=== PATIENT | male | born 1955 | race African-American/Black ===

== ENCOUNTER 2019-07-19 13:33 | Emergency (ER) | payer SELFPAY ==
--- NOTE | 2019-07-19 15:11 | RAD ---
EXAM: XR Knee Lt 4 View STANDARD PROVIDED CLINICAL HISTORY: Pain FINDINGS: There is no evidence for fracture or other acute osseous abnormality. Alignment appears anatomic. Ost eophyte formation is seen about the knee with medial femorotibial joint space narrowing. There is moderate-severe knee joint capsular distention presumably reflecting effusion. IMPRESSION: No evidence for an acute osseous abnormality. If there is persistent clinical concern, conservative m anagement and follow-up imaging advised.
== END 2019-07-19 16:10 | disposition home or self-care (01) ==
LOC: ERS 13:33
DX: M25.562 Pain in left knee (principal); M10.9 Gout, unspecified; I10 Essential (primary) hypertension; F17.210 Nicotine dependence, cigarettes, uncomplicated; Z79.899 Other long term (current) drug therapy

== ENCOUNTER 2021-12-31 13:27 | Emergency (ER) | payer MEDICAID, MEDICARE ==
[2021-12-31] MEDS ORDERED: Ketorolac Tromethamine 30 MG/ML VIAL ONE (15:02)
[2021-12-31] MEDS ORDERED: Lidocaine 1% PF 5 ML VIAL ONE ×2 (17:36→19:59)
[2021-12-31] MEDS ORDERED: Lidocaine 1% w/Epinephrine 1:100K 20 ML VIAL ONE (17:38)
[2021-12-31 17:51] LABS: Hemoglobin 15.4 g/dL (14.0-18.0); Mean Corpuscular HGB CONC 31.7 g/dL (32.0-36.0); Mean Corpuscular Hemoglobin 28.7 pg (27.0-31.0); Mean Corpuscular Volume 90.7 fL (78.0-98.0); Platelet Count 174 thou/uL (130-400); RBC Distribution Width 12.8 % (11.5-14.5); Red Blood Cell (RBC) Count 5.38 mill/uL (4.70-6.10)
[2021-12-31 18:05] LABS: ALT (SGPT) 25 U/L (8-55); AST (SGOT) 26 U/L (5-34); Alkaline Phosphatase 95 U/L (40-110); Anion Gap 18 mmol/L (10-20); BUN (Urea Nitrogen) 14 mg/dL (8.4-25.7); Bilirubin, Total 0.9 mg/dL (0.2-1.2); Calc. Creatinine Clearance 0 mL/min (70-130); Calcium 8.9 mg/dL (7.8-10.44); Carbon Dioxide 20 mmol/L (23-31); Chloride 107 mmol/L (98-107); Globulin 3.1 g/dL (2.4-3.5); Glucose 89 mg/dL (80-115); Potassium 4.6 mmol/L (3.5-5.1); Protein, Total 7.1 g/dL (5.8-8.1); Sodium 140 mmol/L (136-145)
[2021-12-31 18:07] LABS: Eosinophils 3 % (0-10); Lymphocytes 34 % (21-51); MDiff Complete? YES; Monocytes 9 % (0-10); Neutrophil 46 % (42-75); Platelet Morphology Comment Appears Adequate; Polychromasia SLIGHT = 2-3 cells (100X) (0-2/hpf); Reactive Lymphocytes 6 % (0-10)
[2021-12-31 19:17] LABS: RBC Count-Automated (BF) 0 /cu.mm; WBC/Nucleated-Auto (BF) 2771 /cu.mm
[2021-12-31 19:19] LABS: Body Fluid Source Synovial Fluid; Tube # EDTA
[2021-12-31 19:20] LABS: BF Color Yellow; BF Segmented Neutrophils 54 %; Cell Count Non Hematic 44 %; Clarity Hazy (Clear); Lymphocytes 2 %
[2021-12-31] MEDS ORDERED: Bupivacaine 0.25% 10 ML VIAL ONE (19:59)
[2021-12-31] MEDS ORDERED: Colchicine 0.6 MG TAB ONE (20:48)
== END 2021-12-31 20:56 | disposition home or self-care (01) ==
LOC: ERS 13:27
DX: M25.462 Effusion, left knee (principal); M10.9 Gout, unspecified; I10 Essential (primary) hypertension; F17.210 Nicotine dependence, cigarettes, uncomplicated; Z79.899 Other long term (current) drug therapy
CPT/HCPCS: 36415; 80053; 82945; 85025; 85060; 85652; 86140; 87070; 87205; 89051; 89060; 96372; J1040; J1885; S0020

== ENCOUNTER 2022-01-18 01:41 | Inpatient (IN) | payer MEDICARE ==
[2022-01-18] MEDS ORDERED: Nitroglycerin 50 MG/250 ML BOT 250 ML ONE (01:50)
[2022-01-18] MEDS ORDERED: Labetalol HCl 100 MG/20 ML VIAL ONE (01:52)
[2022-01-18] MEDS ORDERED: Furosemide 100 MG/10 ML VIAL ONE (01:59)
[2022-01-18 02:08] LABS: Hemoglobin 16.2 g/dL (14.0-18.0); Mean Corpuscular HGB CONC 32.1 g/dL (32.0-36.0); Mean Corpuscular Hemoglobin 29.7 pg (27.0-31.0); Mean Corpuscular Volume 92.6 fL (78.0-98.0); RBC Distribution Width 12.9 % (11.5-14.5); Red Blood Cell (RBC) Count 5.46 mill/uL (4.70-6.10); White Blood Cell (WBC) Count 12.2 thou/uL (4.8-10.8)
[2022-01-18 02:21] LABS: #Basophils 0.1 thou/uL (0.0-0.2); #Eosinphils 0.1 thou/uL (0.0-0.7); #Lymphocytes 3.3 thou/uL (1.20-3.40); #Monocytes 1.3 thou/uL (0.11-0.59); #Neutrophils 7.5 thou/uL (1.40-6.50); %Basophils 0.6 % (0.0-1.0); %Eosinophils 0.4 % (0.0-10.0); %Lymphocytes 26.7 % (21.0-51.0); %Monocytes 10.6 % (0.0-10.0); %Neutrophils 61.6 % (42.0-75.0); Platelet Count 115 thou/uL (130-400); Platelet Morphology Comment Appears Decreased
[2022-01-18 02:27] LABS: Actual Bicarbonate (HCO3a) 23.2 mEq/L (22-28); Analyzer IN Cardio ER; Base Excess (BEa) -1.7 mEq/L (-2.0 to +3.0); CO2 Tension 40.2 mmHg (35.0-45.0); Calcium, Ionized (arterial) 1.12 mmol/L (1.12-1.30); Carboxyhemoglobin (COHb) 1.8 gm% (0.0-3.0); O2 Tension (PaO2), arterial 95.6 mmHg (> 80.0); Potassium - ABG Lab 3.43 mmol/L (3.70-5.30); Puncture Site RRA; pH, Arterial 7.38 (7.35-7.45)
[2022-01-18 02:32] LABS: ALT (SGPT) 62 U/L (8-55); AST (SGOT) 81 U/L (5-34); Albumin 4.2 g/dL (3.4-4.8); Alkaline Phosphatase 145 U/L (40-110); Anion Gap 18 mmol/L (10-20); BUN (Urea Nitrogen) 17 mg/dL (8.4-25.7); Bilirubin, Total 1.5 mg/dL (0.2-1.2); Calc. Creatinine Clearance 0 mL/min (70-130); Calcium 8.8 mg/dL (7.8-10.44); Carbon Dioxide 22 mmol/L (23-31); Chloride 103 mmol/L (98-107); Globulin 3.4 g/dL (2.4-3.5); Glucose 204 mg/dL (80-115); Potassium 3.9 mmol/L (3.5-5.1); Protein, Total 7.6 g/dL (5.8-8.1); Sodium 139 mmol/L (136-145)
[2022-01-18 02:53] LABS: CKMB 7.8 ng/mL (0-6.6)
[2022-01-18 02:54] LABS: CK (CPK) 1254 U/L (30-200); Magnesium 2.8 mg/dL (1.6-2.6)
[2022-01-18] MEDS ORDERED: Enoxaparin Sodium 100 MG/ML SYRINGE ONE (04:01)
[2022-01-18 05:09] LABS: Lactic Acid 1.4 mmol/L (0.5-2.2)
[2022-01-18 05:24] LABS: Troponin I 0.531 ng/mL (< 0.028)
[2022-01-18] MEDS ORDERED: Ondansetron ODT 4 MG TAB PO PRN (08:28)
[2022-01-18] MEDS ORDERED: Acetaminophen 325 MG TAB PO PRN (08:28)
[2022-01-18] MEDS ORDERED: Hydrochlorothiazide 25 MG TAB PO SCH (08:45)
[2022-01-18] MEDS ORDERED: Aspirin 325 MG TAB PO SCH (08:45)
[2022-01-18] MEDS ORDERED: Aspirin 325 MG TAB ONE (09:58)
[2022-01-18] MEDS ORDERED: Nicotine 14 MG PATCH ONE (10:00)
[2022-01-18] MEDS: Nicotine 14 MG PATCH TD SCH (10:05)
[2022-01-18 13:22] VITALS: BMI 33.1
[2022-01-18 13:53] LABS: Critical Call Chem Troponin I RESULT DECREASING; Troponin I 0.464 ng/mL (< 0.028)
[2022-01-18 14:29] LABS: Hemoglobin A1c 5.1 % (4.0-6.0)
[2022-01-18] MEDS: Enoxaparin Sodium 100 MG/ML SYRINGE SC SCH (21:30)
[2022-01-19 05:29] LABS: Anion Gap 17 mmol/L (10-20); BUN (Urea Nitrogen) 24 mg/dL (8.4-25.7); Calc. Creatinine Clearance 78 mL/min (70-130); Calcium 9.6 mg/dL (7.8-10.44); Carbon Dioxide 25 mmol/L (23-31); Cardiac Risk 3.9 (Less than 4.5); Chloride 100 mmol/L (98-107); Cholesterol 185 mg/dl (< 200 Desired); Glucose 98 mg/dL (80-115); HDL Cholesterol 47 mg/dL (>60 Neg Risk); LDL Cholesterol, Calculated 101 mg/dL; Potassium 3.8 mmol/L (3.5-5.1); Sodium 138 mmol/L (136-145); Triglycerides 186 mg/dL (Less than 150)
[2022-01-19 05:43] LABS: Band 1 % (5-11); Hemoglobin 15.4 g/dL (14.0-18.0); Lymphocytes 43 % (21-51); MDiff Complete? YES; Mean Corpuscular HGB CONC 31.3 g/dL (32.0-36.0); Mean Corpuscular Hemoglobin 29.2 pg (27.0-31.0); Mean Platelet Volume 10.4 fL (7.4-10.4); Monocytes 13 % (0-10); Myelocyte 1 % (0-0); Neutrophil 42 % (42-75); Platelet Count 121 thou/uL (130-400); Platelet Morphology Comment Appears Decreased; RBC Distribution Width 12.8 % (11.5-14.5); RBC Morphology Normal; Red Blood Cell (RBC) Count 5.27 mill/uL (4.70-6.10); White Blood Cell (WBC) Count 6.1 thou/uL (4.8-10.8)
[2022-01-19] MEDS: Aspirin 81 mg Enteric Coated Tablet PO SCH (09:03)
[2022-01-19] MEDS: Montelukast Sodium 10 mg Tablet PO SCH (09:04)
[2022-01-19] MEDS: Hydrochlorothiazide 25 MG TAB PO SCH (09:04)
[2022-01-19] MEDS: Enoxaparin Sodium 100 MG/ML SYRINGE SC SCH ×2 (09:04→20:12)
[2022-01-19] MEDS: Lisinopril 20 MG TAB PO SCH (09:04)
[2022-01-19] MEDS: Colchicine 0.6 MG TAB PO SCH (09:04)
[2022-01-19] MEDS: Nicotine 14 MG PATCH TD SCH (09:05)
[2022-01-19] MEDS: Metoprolol Tartrate 25 MG TAB PO SCH (20:15)
[2022-01-20 05:47] LABS: Anion Gap 18 mmol/L (10-20); BUN (Urea Nitrogen) 23 mg/dL (8.4-25.7); Band 4 % (5-11); Calc. Creatinine Clearance 77 mL/min (70-130); Calcium 9.8 mg/dL (7.8-10.44); Carbon Dioxide 25 mmol/L (23-31); Chloride 99 mmol/L (98-107); Eosinophils 1 % (0-10); Glucose 89 mg/dL (80-115); Lymphocytes 40 % (21-51); MDiff Complete? YES; Mean Corpuscular HGB CONC 32.1 g/dL (32.0-36.0); Mean Corpuscular Hemoglobin 29.4 pg (27.0-31.0); Mean Corpuscular Volume 91.7 fL (78.0-98.0); Mean Platelet Volume 10.6 fL (7.4-10.4); Monocytes 5 % (0-10); Neutrophil 47 % (42-75); Platelet Count 123 thou/uL (130-400); Platelet Morphology Comment Appears Adequate; Potassium 4.3 mmol/L (3.5-5.1); RBC Distribution Width 12.6 % (11.5-14.5); RBC Morphology Normal; Reactive Lymphocytes 3 % (0-10); Red Blood Cell (RBC) Count 5.44 mill/uL (4.70-6.10); Sodium 138 mmol/L (136-145); White Blood Cell (WBC) Count 5.5 thou/uL (4.8-10.8)
[2022-01-20] MEDS: Aspirin 81 mg Enteric Coated Tablet PO SCH (10:03)
[2022-01-20] MEDS: Enoxaparin Sodium 100 MG/ML SYRINGE SC SCH (10:03)
[2022-01-20] MEDS: Lisinopril 20 MG TAB PO SCH (10:04)
[2022-01-20] MEDS: Hydrochlorothiazide 25 MG TAB PO SCH (10:04)
[2022-01-20] MEDS: Montelukast Sodium 10 mg Tablet PO SCH (10:04)
[2022-01-20] MEDS: Colchicine 0.6 MG TAB PO SCH (10:12)
[2022-01-20 12:55] VITALS: BP 154/99; TEMP 97.7
[2022-01-20] MEDS: Nicotine 14 MG PATCH TD SCH (13:24)
[2022-01-20] MEDS: Metoprolol Tartrate 25 MG TAB PO SCH (13:24)
== END 2022-01-20 14:29 | disposition home or self-care (01) | DRG 280 ==
LOC: ERS 01:41 → ERHOLD 03:50 → 2SW 12:19
PROVIDERS: ADMIT Internal Medicine; ATTEND Internal Medicine
PROC: 5A09357 Assistance with Respiratory Ventilation, Less than 24 Consecutive Hours, Continuous Positive Airway Pressure (ICD-10-PCS; principal; 2022-01-18)
DX: I11.0 Hypertensive heart disease with heart failure (principal); I50.23 Acute on chronic systolic (congestive) heart failure; I21.A1 Myocardial infarction type 2; J96.01 Acute respiratory failure with hypoxia; N17.9 Acute kidney failure, unspecified; I16.0 Hypertensive urgency; Z20.822 Contact with and (suspected) exposure to COVID-19; M10.9 Gout, unspecified; F17.210 Nicotine dependence, cigarettes, uncomplicated; E78.5 Hyperlipidemia, unspecified; M71.21 Synovial cyst of popliteal space [Baker], right knee; R74.8 Abnormal levels of other serum enzymes; Z91.14 Patient's other noncompliance with medication regimen; Z80.3 Family history of malignant neoplasm of breast; Z82.49 Family history of ischemic heart disease and other diseases of the circulatory system; Z79.899 Other long term (current) drug therapy
CPT/HCPCS: 36415; 36600; 71045; 80048; 80053; 80061; 82550; 82553; 82805; 83036; 83605; 83735; 83880; 84443; 84484; 85025; 85379; 93005; 93306; 94660; 94760; 96372; 96374; 96375; J1650; J1940; U0003; U0005

== ENCOUNTER 2022-02-08 16:54 | Inpatient (IN) | payer MEDICARE ==
[2022-02-09] MEDS ORDERED: Ondansetron PF 4 MG/2 ML Vial IVP PRN (01:07)
[2022-02-09] MEDS ORDERED: Acetaminophen 325 MG TAB PO PRN (01:07)
[2022-02-09 02:15] VITALS: BMI 33.1
[2022-02-09] MEDS ORDERED: Montelukast Sodium 10 mg Tablet PO PRN (07:51)
[2022-02-09 08:30] LABS: #Basophils 0.1 thou/uL (0.0-0.2); #Eosinphils 0.1 thou/uL (0.0-0.7); #Lymphocytes 2.3 thou/uL (1.20-3.40); #Monocytes 0.6 thou/uL (0.11-0.59); #Neutrophils 2.3 thou/uL (1.40-6.50); %Basophils 1.3 % (0.0-1.0); %Eosinophils 2.5 % (0.0-10.0); %Lymphocytes 43.3 % (21.0-51.0); %Monocytes 10.7 % (0.0-10.0); %Neutrophils 42.3 % (42.0-75.0); Hemoglobin 15.2 g/dL (14.0-18.0); Mean Corpuscular HGB CONC 31.2 g/dL (32.0-36.0); Mean Corpuscular Hemoglobin 28.9 pg (27.0-31.0); Mean Corpuscular Volume 92.4 fL (78.0-98.0); Mean Platelet Volume 9.4 fL (7.4-10.4); Platelet Count 168 thou/uL (130-400); RBC Distribution Width 12.1 % (11.5-14.5); Red Blood Cell (RBC) Count 5.26 mill/uL (4.70-6.10); White Blood Cell (WBC) Count 5.3 thou/uL (4.8-10.8)
[2022-02-09] MEDS: Sodium Chloride 0.45% 1,000 ML IV SCH ×3 (08:31→20:42)
[2022-02-09] MEDS: Metoprolol Tartrate 25 MG TAB PO SCH ×2 (08:32→20:42)
[2022-02-09] MEDS ORDERED: Lidocaine 1% (PF) 30 ML VIAL ONE (08:45)
[2022-02-09 08:46] LABS: Anion Gap 15 mmol/L (10-20); BUN (Urea Nitrogen) 27 mg/dL (8.4-25.7); Calc. Creatinine Clearance 77 mL/min (70-130); Calcium 9.8 mg/dL (7.8-10.44); Carbon Dioxide 27 mmol/L (23-31); Chloride 103 mmol/L (98-107); Estimated GFR 59; Glucose 107 mg/dL (80-115); Sodium 141 mmol/L (136-145)
[2022-02-09] MEDS ORDERED: Fentanyl 100 MCG/2 ML VIAL ONE (09:47)
[2022-02-09] MEDS ORDERED: Midazolam HCl 2 mg/2 ml Vial ONE (09:47)
[2022-02-09] MEDS ORDERED: Sodium Chloride 0.9% 200 ML IV PRN (10:30)
[2022-02-09] MEDS ORDERED: Acetaminophen/Codeine 30-300mg Tablet PO PRN (10:30)
[2022-02-09] MEDS ORDERED: Sodium Chloride 0.9% 250 ML IV SCH (10:45)
[2022-02-09] MEDS: Heparin 5,000 UNITS/ML VIAL SC SCH ×2 (11:28→20:42)
[2022-02-09] MEDS ORDERED: Iopamidol 370 76% 100 ML VIAL ONE (13:03)
[2022-02-09] MEDS ORDERED: Sodium Chloride 0.45% 1,000 ML IV SCH (21:03)
[2022-02-09 23:34] VITALS: BP 145/91; TEMP 98.4
== END 2022-02-10 02:43 | disposition short-term general hospital (02) | DRG 287 ==
LOC: NEURO 22:44 → INTOOBSV 22:44 → OBSVTOIN 02-09 16:48
PROVIDERS: ADMIT Hospitalist; ATTEND Internal Medicine
PROC: 4A023N8 Measurement of Cardiac Sampling and Pressure, Bilateral, Percutaneous Approach (ICD-10-PCS; principal; 2022-02-09)
PROC: B2161ZZ Fluoroscopy of Right and Left Heart using Low Osmolar Contrast (ICD-10-PCS; 2022-02-09)
DX: I35.0 Nonrheumatic aortic (valve) stenosis (principal); I47.2 Ventricular tachycardia; I50.22 Chronic systolic (congestive) heart failure; N17.9 Acute kidney failure, unspecified; I42.9 Cardiomyopathy, unspecified; I71.2 Thoracic aortic aneurysm, without rupture; Z20.822 Contact with and (suspected) exposure to COVID-19; I11.0 Hypertensive heart disease with heart failure; M06.9 Rheumatoid arthritis, unspecified; F17.210 Nicotine dependence, cigarettes, uncomplicated; R77.8 Other specified abnormalities of plasma proteins; Z79.899 Other long term (current) drug therapy
CPT/HCPCS: 36415; 71045; 80048; 80053; 82553; 83880; 84484; 85025; 85610; 85730; 93005; 93460; 94760; 96360; 96361; 99152; 99153; G0378; J1644; J2001; J2250; J3010; J7030; Q9967; U0003; U0005

== ENCOUNTER 2022-02-08 17:53 | Emergency (ER) | payer MEDICARE, SELFPAY ==
[2022-02-08 20:34] LABS: #Basophils 0.1 thou/uL (0.0-0.2); #Eosinphils 0.1 thou/uL (0.0-0.7); #Lymphocytes 2.7 thou/uL (1.20-3.40); #Monocytes 0.8 thou/uL (0.11-0.59); #Neutrophils 2.7 thou/uL (1.40-6.50); %Basophils 1.6 % (0.0-1.0); %Eosinophils 2.2 % (0.0-10.0); %Lymphocytes 42.6 % (21.0-51.0); %Monocytes 12.2 % (0.0-10.0); %Neutrophils 41.4 % (42.0-75.0); Hemoglobin 14.5 g/dL (14.0-18.0); Mean Corpuscular HGB CONC 32.2 g/dL (32.0-36.0); Mean Corpuscular Hemoglobin 29.4 pg (27.0-31.0); Mean Corpuscular Volume 91.5 fL (78.0-98.0); Mean Platelet Volume 8.9 fL (7.4-10.4); Platelet Count 184 thou/uL (130-400); RBC Distribution Width 12.2 % (11.5-14.5); Red Blood Cell (RBC) Count 4.92 mill/uL (4.70-6.10); White Blood Cell (WBC) Count 6.4 thou/uL (4.8-10.8)
[2022-02-08 20:48] LABS: Prothrombin Time 12.9 sec (12.0-14.7)
[2022-02-08 20:54] LABS: ALT (SGPT) 20 U/L (8-55); AST (SGOT) 26 U/L (5-34); Alkaline Phosphatase 100 U/L (40-110); Anion Gap 16 mmol/L (10-20); BUN (Urea Nitrogen) 32 mg/dL (8.4-25.7); Calc. Creatinine Clearance 0 mL/min (70-130); Calcium 9.3 mg/dL (7.8-10.44); Carbon Dioxide 24 mmol/L (23-31); Chloride 104 mmol/L (98-107); Estimated GFR 51; Globulin 3.3 g/dL (2.4-3.5); Glucose 98 mg/dL (80-115); Potassium 4.1 mmol/L (3.5-5.1); Protein, Total 7.3 g/dL (5.8-8.1); Sodium 140 mmol/L (136-145)
[2022-02-08] MEDS ORDERED: Aspirin Chewable 81 MG TAB ONE (21:20)
[2022-02-08 21:28] LABS: CKMB 6.7 ng/mL (0-6.6)
[2022-02-09 01:24] LABS: Troponin I 0.141 ng/mL (< 0.028)
[2022-02-09 05:05] LABS: Troponin I 0.155 ng/mL (< 0.028)
== END 2022-02-08 22:38 ==
LOC: ERS 17:53
DX: R79.89 Other specified abnormal findings of blood chemistry (principal); M10.9 Gout, unspecified; Z20.822 Contact with and (suspected) exposure to COVID-19; I10 Essential (primary) hypertension; F17.210 Nicotine dependence, cigarettes, uncomplicated
CPT/HCPCS: 36415; 71045; 80053; 82553; 84484; 85025; 85610; 85730; 93005; 94760; U0003; U0005

== ENCOUNTER 2022-06-21 10:03 | Emergency (ER) | payer OTHER, MEDICARE | END 2022-06-21 12:06 | disposition home or self-care (01) | LOC: ERS 10:03 | DX: S50.11XA Contusion of right forearm, initial encounter (principal); I25.10 Atherosclerotic heart disease of native coronary artery without angina pectoris; I10 Essential (primary) hypertension; Z87.891 Personal history of nicotine dependence; Z79.899 Other long term (current) drug therapy; V49.9XXA Car occupant (driver) (passenger) injured in unspecified traffic accident, initial encounter; Y92.410 Unspecified street and highway as the place of occurrence of the external cause ==

== ENCOUNTER 2022-10-02 02:52 | Inpatient (IN) | payer MEDICARE ==
[2022-10-02] MEDS ORDERED: hydrALAZINE 20 MG/ML VIAL ONE (04:16)
[2022-10-02] MEDS ORDERED: Nitroglycerin 2% Ointment 1 INCH/1 GM Packet ONE (04:16)
[2022-10-02 04:46] LABS: #Basophils 0.1 thou/uL (0.0-0.2); #Eosinphils 0.1 thou/uL (0.0-0.7); #Lymphocytes 1.9 thou/uL (1.20-3.40); #Monocytes 0.6 thou/uL (0.11-0.59); #Neutrophils 3.2 thou/uL (1.40-6.50); %Basophils 0.9 % (0.0-1.0); %Eosinophils 2.5 % (0.0-10.0); %Lymphocytes 32.6 % (21.0-51.0); %Monocytes 10.3 % (0.0-10.0); %Neutrophils 53.7 % (42.0-75.0); Hemoglobin 15.4 g/dL (14.0-18.0); Mean Corpuscular Hemoglobin 29.3 pg (27.0-31.0); Mean Corpuscular Volume 91.4 fl (78.0-98.0); Mean Platelet Volume 9.8 fL (7.4-10.4); Platelet Count 131 10x3/uL (130-400); Red Blood Cell (RBC) Count 5.27 mill/uL (4.70-6.10); White Blood Cell (WBC) Count 5.9 10x3/uL (4.8-10.8)
[2022-10-02 05:08] LABS: ALT (SGPT) 24 U/L (8-55); AST (SGOT) 23 U/L (5-34); Albumin 4.5 g/dL (3.4-4.8); Alkaline Phosphatase 139 U/L (40-110); Anion Gap 15 mmol/L (10-20); BUN (Urea Nitrogen) 12 mg/dL (8.4-25.7); Bilirubin, Total 1.3 mg/dL (0.2-1.2); Calc. Creatinine Clearance 0 mL/min (70-130); Calcium 9.6 mg/dL (7.8-10.44); Carbon Dioxide 23 mmol/L (23-31); Chloride 105 mmol/L (98-107); Estimated GFR 66; Globulin 3.4 g/dL (2.4-3.5); Glucose 115 mg/dL (80-115); Protein, Total 7.9 g/dL (5.8-8.1); Sodium 139 mmol/L (136-145)
[2022-10-02] MEDS ORDERED: Aspirin Chewable 81 MG TAB ONE ×2 (05:33→07:08)
[2022-10-02] MEDS ORDERED: niCARdipine 25 MG/10 ML VIAL ONE (05:33)
[2022-10-02 05:36] LABS: CKMB 4.8 ng/mL (0-6.6)
[2022-10-02] MEDS ORDERED: Electrolyte Replacement Protocol 1 EACH IVPB PRN (06:09)
[2022-10-02] MEDS ORDERED: Acetaminophen 325 MG Suppository PR PRN (06:09)
[2022-10-02] MEDS ORDERED: Acetaminophen 325 MG TAB PO PRN (06:11)
[2022-10-02] MEDS ORDERED: Senokot S 8.6-50 MG TAB PO PRN (06:11)
[2022-10-02] MEDS ORDERED: niCARdipine 40MG In NaCl 40 MG/200 ML BAG IVPB SCH (06:15)
[2022-10-02] MEDS ORDERED: niCARdipine 50 MG in Sodium Chloride 0.9% 250 ML 230 ML IV SCH (06:15)
[2022-10-02 07:29] LABS: SARS-CoV-2 NAA Rapid Test Not Detected (NotDetected)
[2022-10-02 08:21] VITALS: BMI 34.8
[2022-10-02 08:21] LABS: Troponin I 0.255 ng/mL (< 0.028)
[2022-10-02 08:47] LABS: CKMB 4.8 ng/mL (0-6.6)
[2022-10-02] MEDS ORDERED: Famotidine/PF 20 mg/2ml Vial SLOW IVP SCH (09:00)
[2022-10-02] MEDS ORDERED: EPLERENONE 25 MG PO SCH (09:00)
[2022-10-02] MEDS ORDERED: Atorvastatin Calcium 40 MG TAB PO SCH ×2 (09:00→21:00)
[2022-10-02] MEDS: Amoxicillin/Potassium Clav 875 MG TAB PO SCH ×2 (09:46→20:14)
[2022-10-02] MEDS: Spironolactone 25 MG TAB PO SCH (09:46)
[2022-10-02] MEDS: Famotidine 20 MG TAB PO SCH ×2 (09:46→20:14)
[2022-10-02] MEDS: Clopidogrel Bisulfate 75 MG TAB PO SCH (09:47)
[2022-10-02] MEDS: NIFEdipine XL 60 MG TAB PO SCH (09:47)
[2022-10-02] MEDS ORDERED: Carvedilol 6.25 MG TAB PO SCH (10:00)
[2022-10-02 11:09] LABS: Critical Call Chem Troponin I RESULT DECREASING; Troponin I 0.242 ng/mL (< 0.028)
[2022-10-02] MEDS: Carvedilol 6.25 MG TAB PO SCH (17:42)
[2022-10-03 04:10] LABS: #Eosinphils 0.1 thou/uL (0.0-0.7); #Monocytes 0.7 thou/uL (0.11-0.59); #Neutrophils 3.3 thou/uL (1.40-6.50); %Basophils 0.2 % (0.0-1.0); %Eosinophils 1.8 % (0.0-10.0); %Lymphocytes 32.9 % (21.0-51.0); %Monocytes 11.8 % (0.0-10.0); %Neutrophils 53.3 % (42.0-75.0); Hemoglobin 15.2 g/dL (14.0-18.0); Mean Corpuscular HGB CONC 31.6 g/dL (32.0-36.0); Mean Corpuscular Hemoglobin 28.9 pg (27.0-31.0); Mean Corpuscular Volume 91.6 fl (78.0-98.0); Mean Platelet Volume 9.7 fL (7.4-10.4); Platelet Count 136 10x3/uL (130-400); RBC Distribution Width 12.2 % (11.5-14.5); Red Blood Cell (RBC) Count 5.27 mill/uL (4.70-6.10); White Blood Cell (WBC) Count 6.2 10x3/uL (4.8-10.8)
[2022-10-03 04:30] LABS: Anion Gap 16 mmol/L (10-20); BUN (Urea Nitrogen) 12 mg/dL (8.4-25.7); Calc. Creatinine Clearance 96 mL/min (70-130); Calcium 9.6 mg/dL (7.8-10.44); Carbon Dioxide 22 mmol/L (23-31); Chloride 103 mmol/L (98-107); Estimated GFR 72; Glucose 106 mg/dL (80-115); Potassium 3.9 mmol/L (3.5-5.1); Sodium 137 mmol/L (136-145)
[2022-10-03] MEDS: Amoxicillin/Potassium Clav 875 MG TAB PO SCH (08:14)
[2022-10-03] MEDS: Clopidogrel Bisulfate 75 MG TAB PO SCH (08:14)
[2022-10-03] MEDS: NIFEdipine XL 60 MG TAB PO SCH (08:14)
[2022-10-03] MEDS: Carvedilol 6.25 MG TAB PO SCH (08:15)
[2022-10-03] MEDS: Famotidine 20 MG TAB PO SCH (08:15)
[2022-10-03] MEDS: Spironolactone 25 MG TAB PO SCH (08:15)
[2022-10-03 08:16] VITALS: BP 164/114
[2022-10-03] MEDS ORDERED: NIFEdipine XL 60 MG TAB PO SCH (09:45)
[2022-10-03] MEDS ORDERED: Carvedilol 6.25 MG TAB PO SCH (09:45)
[2022-10-03 16:10] VITALS: TEMP 98.6
[2022-10-03] MEDS ORDERED: Colchicine 0.6 MG TAB PO SCH ×2 (18:00→19:00)
[2022-10-03] MEDS ORDERED: Carvedilol 25 MG TAB PO SCH (21:00)
== END 2022-10-03 18:19 | disposition left against medical advice (07) | DRG 281 ==
LOC: ERS 02:52 → CCU 07:28 → 2NO 10-03 17:15
PROVIDERS: ADMIT Student in an Organized Health Care Education/Training Program; ATTEND Student in an Organized Health Care Education/Training Program
DX: I16.1 Hypertensive emergency (principal); I21.A1 Myocardial infarction type 2; I42.8 Other cardiomyopathies; I50.22 Chronic systolic (congestive) heart failure; M10.9 Gout, unspecified; I11.0 Hypertensive heart disease with heart failure; I25.10 Atherosclerotic heart disease of native coronary artery without angina pectoris; F17.210 Nicotine dependence, cigarettes, uncomplicated; Z95.5 Presence of coronary angioplasty implant and graft; Z79.899 Other long term (current) drug therapy; Z91.199 Patient's noncompliance with other medical treatment and regimen due to unspecified reason; Z91.14 Patient's other noncompliance with medication regimen
CPT/HCPCS: 36415; 70450; 70486; 71045; 80048; 80053; 82553; 83880; 84484; 85025; 93005; 93306; J0360

== ENCOUNTER 2023-01-08 05:48 | Emergency (ER) | payer MEDICARE ==
[2023-01-08 06:25] LABS: #Basophils 0.1 thou/uL (0.0-0.2); #Eosinphils 0.3 thou/uL (0.0-0.7); #Neutrophils 3.7 thou/uL (1.40-6.50); %Basophils 0.9 % (0.0-1.0); %Eosinophils 3.5 % (0.0-10.0); %Lymphocytes 32.4 % (21.0-51.0); %Monocytes 13.7 % (0.0-10.0); Hemoglobin 14.9 g/dL (14.0-18.0); Mean Corpuscular HGB CONC 31.8 g/dL (32.0-36.0); Mean Corpuscular Hemoglobin 28.6 pg (27.0-31.0); Mean Corpuscular Volume 89.8 fl (78.0-98.0); Mean Platelet Volume 11.7 fL (7.4-10.4); Platelet Count 155 10x3/uL (130-400); RBC Distribution Width 13.2 % (11.5-14.5); Red Blood Cell (RBC) Count 5.21 mill/uL (4.70-6.10); White Blood Cell (WBC) Count 7.5 10x3/uL (4.8-10.8)
[2023-01-08 06:43] LABS: Bilirubin Negative (Negative); Blood, Urine Trace (Negative); CAUTI Indications for Culture Dysuria,urgency,freq; Glucose, Urine (Dipstick) Normal (Negative); Ketone, Urine Negative (Negative); Leukocyte 500 Leu/uL (Negative); Nitrite 2+ (Negative); Protein, Urine (Dipstick) 20 mg/dL (Neg-Trace); Specific Gravity, Urine 1.015 (1.002-1.036); Squamous Epithelial 0-3 HPF (0-3); Urobilinogen Normal mg/dL (Less than 2); WBC/HPF Greater than 50 HPF (0-3); pH, Urine 5.5 (5.0-9.0)
[2023-01-08 06:52] LABS: ALT (SGPT) 29 U/L (8-55); AST (SGOT) 25 U/L (5-34); Albumin 4.6 g/dL (3.4-4.8); Alkaline Phosphatase 145 U/L (40-110); Anion Gap 12 mmol/L (10-20); BUN (Urea Nitrogen) 13 mg/dL (8.4-25.7); Bilirubin, Total 0.9 mg/dL (0.2-1.2); Calc. Creatinine Clearance 0 mL/min (70-130); Calcium 9.9 mg/dL (7.8-10.44); Carbon Dioxide 27 mmol/L (23-31); Chloride 105 mmol/L (98-107); Estimated GFR 65; Globulin 3.6 g/dL (2.4-3.5); Glucose 116 mg/dL (80-115); Potassium 3.5 mmol/L (3.5-5.1); Protein, Total 8.2 g/dL (5.8-8.1); Sodium 140 mmol/L (136-145)
[2023-01-08 07:01] LABS: Clarity Hazy (Clear)
[2023-01-08 07:02] LABS: Bacteria/HPF 3+ HPF (None Seen); Yeast-Budding None Seen HPF (None Seen)
[2023-01-08 07:14] LABS: CKMB 5.1 ng/mL (0-6.6)
[2023-01-08] MEDS ORDERED: Aspirin Chewable 81 MG TAB ONE (07:29)
[2023-01-08] MEDS ORDERED: Furosemide 40 MG/4 ML VIAL ONE (07:29)
[2023-01-08 08:19] LABS: Urine Culture Reflex Yes Yes
== END 2023-01-08 10:58 | disposition home or self-care (01) ==
LOC: ERS 05:48
DX: R60.0 Localized edema (principal); R82.71 Bacteriuria; R77.8 Other specified abnormalities of plasma proteins; I25.10 Atherosclerotic heart disease of native coronary artery without angina pectoris; Z79.82 Long term (current) use of aspirin; Z79.899 Other long term (current) drug therapy
CPT/HCPCS: 36415; 71045; 80053; 81001; 82553; 83880; 84484; 85025; 87077; 87086; 87186; 93005; 96374; J1940

== ENCOUNTER 2023-05-25 02:10 | Emergency (ER) | payer MEDICARE ==
[2023-05-25 03:37] LABS: #Basophils 0.1 thou/uL (0.0-0.2); #Eosinphils 0.2 thou/uL (0.0-0.7); #Neutrophils 4.7 thou/uL (1.40-6.50); %Basophils 0.9 % (0.0-1.0); %Eosinophils 2.4 % (0.0-10.0); %Lymphocytes 31.5 % (21.0-51.0); %Monocytes 11.3 % (0.0-10.0); %Neutrophils 53.3 % (42.0-75.0); Hematocrit 45.7 % (42.0-52.0); Hemoglobin 14.7 g/dL (14.0-18.0); Mean Corpuscular HGB CONC 32.2 g/dL (32.0-36.0); Mean Corpuscular Hemoglobin 28.4 pg (27.0-31.0); Mean Corpuscular Volume 88.4 fl (78.0-98.0); Mean Platelet Volume 10.7 fL (7.4-10.4); Platelet Count 174 10x3/uL (130-400); Red Blood Cell (RBC) Count 5.17 mill/uL (4.70-6.10); White Blood Cell (WBC) Count 8.7 10x3/uL (4.8-10.8)
[2023-05-25 04:01] LABS: ALT (SGPT) 24 U/L (8-55); AST (SGOT) 24 U/L (5-34); Albumin 5.1 g/dL (3.4-4.8); Alkaline Phosphatase 155 U/L (40-110); Anion Gap 15 mmol/L (10-20); BUN (Urea Nitrogen) 15 mg/dL (8.4-25.7); Bilirubin, Total 0.8 mg/dL (0.2-1.2); Calc. Creatinine Clearance 0 mL/min (70-130); Calcium 10.2 mg/dL (7.8-10.44); Carbon Dioxide 23 mmol/L (23-31); Chloride 101 mmol/L (98-107); Estimated GFR 67; Globulin 3.3 g/dL (2.4-3.5); Glucose 136 mg/dL (80-115); Potassium 3.4 mmol/L (3.5-5.1); Protein, Total 8.4 g/dL (5.8-8.1); Sodium 136 mmol/L (136-145)
[2023-05-25 04:04] LABS: Troponin I 0.078 ng/mL (< 0.028)
== END 2023-05-25 05:12 | disposition home or self-care (01) ==
LOC: ERS 02:10
DX: R22.43 Localized swelling, mass and lump, lower limb, bilateral (principal); R79.89 Other specified abnormal findings of blood chemistry; I25.10 Atherosclerotic heart disease of native coronary artery without angina pectoris; I10 Essential (primary) hypertension; Z79.899 Other long term (current) drug therapy
CPT/HCPCS: 71045; 80053; 83880; 84484; 85025; 93005